=== PATIENT | female | born 1970 | race Caucasian/White ===

== ENCOUNTER 2018-03-07 16:02 | Emergency (ER) | payer SELFPAY ==
[~2018-03-07] VITALS: Wt 47.7 kg
[~2018-03-07 16:02] MED LIST: AMLO5TAB4 PO; CEPH-443 PO; HYDR25TA6 PO; IBUP-1542 PO; ONDA4TAB8 PO
[2018-03-07 16:05] VITALS: BP 132/87; PULSE 99; RESP 18
[2018-03-07] MEDS ORDERED: KETOROLAC 30 MG INJ IM STA (16:55)
[2018-03-07] MEDS ORDERED: CYCL10TA7 PO (17:50)
[2018-03-07] MEDS ORDERED: IBUP-1561 PO (17:50)
--- NOTE | 2018-03-07 17:56 | ERD ---
ER Documentation Chief Complaint Chief Complaint BACKPAIN ,GONZALEZ X 3 DAYS HPI 47-year-old female patient with no significant past medical history presents to ED complaining of back pain, headache that started 3 days ago. Denies any injuries. Reports that she has neck pain that radiates to her head. Describes as achy sensation. States that when she leans forward, her back and head also hurt. Denies any fever, chills, nausea, vomiting, diarrhea, neck stiffness. ROS All systems reviewed and are negative except as per history of present illness. Medications Home Meds Active Scripts Cyclobenzaprine Hcl* (Cyclobenzaprine Hcl*) 10 Mg Tablet, 10 MG PO TID, #15 TAB Prov:JACKSON VO PA-C 03/07/18 Ibuprofen* (Motrin*) 400 Mg Tab, 400 MG PO Q6, #30 TAB Prov:JACKSON VO PA-C 03/07/18 Ondansetron Hcl* (Zofran*) 4 Mg Tablet, 4 MG PO Q8H PRN for NAUSEA AND/OR VOMITING, #20 TAB Prov:CRISTELA ANGEL MD 12/14/15 Ibuprofen* (Ibuprofen*) 600 Mg Tablet, 600 MG PO Q8 for PAIN AND/OR INFLAMMATION, #30 TAB Prov:CRISTELA ANGEL MD 12/14/15 Cephalexin* (Keflex*) 500 Mg Capsule, 500 MG PO TID for 7 Days, CAP Prov:CRISTELA ANGEL MD 12/14/15 Reported Medications Hydrochlorothiazide* (Hydrochlorothiazide*) 25 Mg Tab, 25 MG PO DAILY, #30 TAB 12/14/15 Amlodipine Besylate* (Norvasc*) 5 Mg Tablet, 5 MG PO DAILY, TAB 12/14/15 Allergies Allergies: Coded Allergies: No Known Allergy (Unverified , 03/07/18) PMhx/Soc History of Surgery: No Anesthesia Reaction: No Hx Neurological Disorder: No Hx Respiratory Disorders: No Hx Cardiac Disorders: Yes (HTN HLD) Hx Psychiatric Problems: No Hx Miscellaneous Medical Probl: No Hx Alcohol Use: No Hx Substance Use: No Hx Tobacco Use: No FmHx Family History: No diabetes, No coronary disease Physical Exam Vitals Vital Signs Date Temp Pulse Resp B/P (MAP) Pulse Ox O2 O2 Flow FiO2 Time Delivery Rate 03/07/18 97.1 99 18 132/87 99 16:05 (102) Physical Exam Const: [id number], well-nourished. In no acute distress. Head: Atraumatic, normocephalic Eyes: Normal Conjunctiva without injection. No purulent discharge. ENT: Normal external ear, nose. Moist oropharynx without tonsillar exudates. Non-erythematous pharynx. Uvula midline. No drooling. No trismus. Neck: No cervical midline tenderness. Full range of motion. No meningismus. No cervical lymphadenopathy. No JVD. Resp: Clear to auscultation bilaterally. No wheezing, rhonchi, rales, or crackles. No accessory muscle use. No retractions. Cardio: Regular rate and rhythm. No murmurs, rubs or gallops. Abd: Soft, nontender, non distended. Normal bowel sounds. No palpable masses. No rebound tenderness. No guarding. Negative McBurney's point. Negative psoas sign. Negative obturator sign. Skin: No petechiae or rashes Back: No midline tenderness. No CVA tenderness. Ext: No cyanosis, or edema. Neur: Awake and alert. Normal gait. Normal coordination. Psych: Normal Mood and Affect Results 24 hrs Laboratory Tests Test 03/07/18 17:13 POC Beta HCG, Qualitative NEGATIVE Current Medications Medications Dose Sig/Brett Start Time Status Last (Trade) Ordered Route PRN Stop Time Admin Dose Reason Admin Ketorolac 30 mg ONCE STAT 03/07/18 DC 03/07/18 Tromethamine IM 16:55 17:21 (Toradol) 03/07/18 16:59 Procedures/MDM 47-year-old female patient with no significant past medical history presents to ED complaining of back pain, headache that started 3 days ago. Patient is afebrile and nontoxic-appearing. IMPRESSION: Limited evaluation of the dens. Otherwise no definite fracture. Mild to moderate degenerative changes. Further findings as detailed above. Consider noncontrast CT of the cervical spine as clinically warranted if history of trauma. IMPRESSION: No evidence for acute cardiopulmonary disease. Further findings as detailed above. Patient is ambulating here in the ED without difficulty. Denies saddle anesthesia, numbness or tingling, urine or bowel incontinence, weakness. Low suspicion for cauda equina syndrome, cord compression, nephrolithiasis, aortic a neurysm, aortic dissection, epidural abscess, spinal hematoma, malignancy, pyelonephritis, or other emergent conditions. Diagnosis: Back Pain Discharge medications: Cyclobenzaprine, Ibuprofen Follow up with primary care physician in 1-2 days. Instructed patient to return to the ED sooner for any worsening symptoms. Patient's questions were answered. Patient is hemodynamically stable. Patient understood and agreed with discharge plan. Patient discharged stable. Disclaimer: Inadvertent spelling and grammatical errors are likely due to EHR/dictation software use and do not reflect on the overall quality of patient care. Also, please note that the electronic time recorded on this note does not necessarily reflect the actual time of the patient encounter. Departure Diagnosis: Primary Impression: Back pain Back pain location: back pain in unspecified location Chronicity: unspecified Back pain laterality: unspecified Qualified Codes: M54.9 - Dorsalgia, unspecified Condition: Stable Patient Instructions: Back Pain (Acute Or Chronic), Back And Neck Pain, General Referrals: [facility] ([facility]) [facility] YOU HAVE RECEIVED A MEDICAL SCREENING EXAM AND THE RESULTS INDICATE THAT YOU DO NOT HAVE A CONDITION THAT REQUIRES URGENT TREATMENT IN THE EMERGENCY DEPARTMENT. FURTHER EVALUATION AND TREATMENT OF YOUR CONDITION CAN WAIT UNTIL YOU ARE SEEN IN YOUR DOCTORS OFFICE WITHIN THE NEXT 1-2 DAYS. IT IS YOUR RESPONSIBILITY TO MAKE AN APPOINTMENT FOR FOLOW-UP CARE. IF YOU HAVE A PRIMARY DOCTOR --you should call your primary doctor and schedule an appointment IF YOU DO NOT HAVE A PRIMARY DOCTOR YOU CAN CALL OUR PHYSICIAN REFERRAL HOTLINE AT IF YOU CAN NOT AFFORD TO SEE A PHYSICIAN YOU CAN CHOSE FROM THE FOLLOWING [facility] [address] [facility]. [facility] [address] [facility]. [facility] [address] [facility] [address] [facility]. [facility] [address] [facility]. [facility]. [address] [facility]. [facility] YOU HAVE RECEIVED A MEDICAL SCREENING EXAM AND THE RESULTS INDICATE THAT YOU DO NOT HAVE A CONDITION THAT REQUIRES URGENT TREATMENT IN THE EMERGENCY DEPARTMENT. FURTHER EVALUATION AND TREATMENT OF YOUR CONDITION CAN WAIT UNTIL YOU ARE SEEN IN YOUR DOCTORS OFFICE WITHIN THE NEXT 1-2 DAYS. IT IS YOUR RESPONSIBILITY TO MAKE AN APPOINTMENT FOR FOLOW-UP CARE. IF YOU HAVE A PRIMARY DOCTOR --you should call your primary doctor and schedule and appointment IF YOU DO NOT HAVE A PRIMARY DOCTOR YOU CAN CALL OUR PHYSICIAN REFERRAL HOTLINE AT . IF YOU CAN NOT AFFORD TO SEE A PHYSICIAN YOU CAN CHOSE FROM THE FOLLOWING [facility] INSTITUTIONS: [facility] [address] [place] [address] [facility] [address] [place] [address] [facility] [address] [place] [address] [facility] URGENT CARE/SPECIALTIES Additional Instructions: Llame al doctor MAANA y tamir rock ZAKIYA PARA DENTRO DE 2-3 ELENA.Dgale a la secretaria que nosotros le instruimos hacer esta zakiya.Avise o llame si guzman condicin se empeora antes de la zakiya. Regresa aqui si peor o no mejor. JACKSON VO PA-C Mar 07, 2018 17:56
== END 2018-03-07 17:58 | disposition home or self-care (01) ==
LOC: FTE 16:02
DX: M54.9 Dorsalgia, unspecified (principal); I10 Essential (primary) hypertension
CPT/HCPCS: 71045; 72040; 81025; 96372; 99284; J1885

== ENCOUNTER 2018-07-20 15:03 | Emergency (ER) | payer MEDICAID ==
[~2018-07-20] VITALS: Ht 149.9 cm; Wt 48.4 kg
[~2018-07-20 15:03] MED LIST changes: +CYCL10TA7 PO; +IBUP-1561 PO
[2018-07-20 15:06] VITALS: Ht 149.9 cm; Wt 48.4 kg
[2018-07-20] MEDS ORDERED: MECLIZINE 12.5 MG TAB PO ONE (16:00)
[2018-07-20] MEDS ORDERED: LABETALOL HCL 20MG INJ IV ONE ×2 (16:00→17:00)
[2018-07-20] MEDS ORDERED: IBUP-1541 PO (16:22)
[2018-07-20] MEDS ORDERED: LOSA25TA12 PO (16:22)
[2018-07-20] MEDS ORDERED: ACETAMINOPHEN 325 MG TAB PO ONE (16:30)
[2018-07-20] MEDS ORDERED: MECL12.574 PO (16:30)
[2018-07-20] MEDS ORDERED: ACET325T33 PO (16:30)
--- NOTE | 2018-07-20 16:55 | ERD ---
ER Documentation Chief Complaint Chief Complaint feels dizzy , generalized weakness , neck pressure since sunday HPI Patient is a 48-year-old female with hypertension who presents with high blood pressure. She started with dizziness on Sunday and feels like the room is spinning. She says that she is taking her medications for blood pressure. She also complained of mild headache and neck pain. Upon review of old medical records this is the patient's third visit to the ER since 2016. She does not currently have a primary doctor. ROS All systems reviewed and are negative except as per history of present illness. Medications Home Meds Active Scripts Meclizine Hcl* (Antivert*) 12.5 Mg Tab, 25 MG PO Q6H PRN for DIZZINESS, #20 TAB Prov:BILLY SEALS MD 07/20/18 Acetaminophen* (Tylenol*) 325 Mg Tablet, 2 TAB PO Q8 PRN for PAIN AND OR ELEVATED TEMP, #20 TAB Prov:BILLY SEALS MD 07/20/18 Reported Medications Ibuprofen* (Ibuprofen*) 400 Mg Tablet, 400 MG PO NEEDED PRN for PAIN, TAB 07/20/18 Losartan Potassium* (Losartan Potassium*) 25 Mg Tablet, 25 MG PO DAILY, TAB 07/20/18 Discontinued Reported Medications Hydrochlorothiazide* (Hydrochlorothiazide*) 25 Mg Tab, 25 MG PO DAILY, #30 TAB 12/14/15 Amlodipine Besylate* (Norvasc*) 5 Mg Tablet, 5 MG PO DAILY, TAB 12/14/15 Discontinued Scripts Cyclobenzaprine Hcl* (Cyclobenzaprine Hcl*) 10 Mg Tablet, 10 MG PO TID, #15 TAB Prov:JACKSON VO PA-C 03/07/18 Ibuprofen* (Motrin*) 400 Mg Tab, 400 MG PO Q6, #30 TAB Prov:JACKSON VO PA-C 03/07/18 Ondansetron Hcl* (Zofran*) 4 Mg Tablet, 4 MG PO Q8H PRN for NAUSEA AND/OR VOMITING, #20 TAB Prov:CRISTELA ANGEL MD 12/14/15 Ibuprofen* (Ibuprofen*) 600 Mg Tablet, 600 MG PO Q8 for PAIN AND/OR INFLAMMATION, #30 TAB Prov:CRISTELA ANGEL MD 12/14/15 Cephalexin* (Keflex*) 500 Mg Capsule, 500 MG PO TID for 7 Days, CAP Prov:CRISTELA ANGEL MD 12/14/15 Allergies Allergies: Coded Allergies: No Known Allergy (Unverified , 07/20/18) PMhx/Soc History of Surgery: No Anesthesia Reaction: No Hx Neurological Disorder: No Hx Respiratory Disorders: No Hx Cardiac Disorders: Yes (HTN HLD) Hx Psychiatric Problems: No Hx Miscellaneous Medical Probl: No Hx Alcohol Use: No Hx Substance Use: No Hx Tobacco Use: No Smoking Status: Never smoker FmHx Family History: No diabetes Physical Exam Vitals Vital Signs Date Temp Pulse Resp B/P (MAP) Pulse Ox O2 O2 Flow FiO2 Time Delivery Rate 07/20/18 66 19 174/104 98 Room Air 16:10 (127) 07/20/18 Nasal 3 15:20 Cannula 07/20/18 98.2 88 18 223/107 98 15:06 (145) Physical Exam Const: No acute distress Head: Atraumatic Eyes: Normal Conjunctiva ENT: Normal External Ears, Nose and Mouth. Neck: Full range of motion. No meningismus. Resp: Clear to auscultation bilaterally Cardio: Regular rate and rhythm, no murmurs Abd: Soft, non tender, non distended. Normal bowel sounds Skin: No petechiae or rashes Back: No midline or flank tenderness Ext: No cyanosis, or edema Neur: Awake and alert, cranial nerves II through XII are intact, strength is 5 out of 5 in all 4 extremities, no slurred speech Psych: Normal Mood and Affect Result Diagram: 07/20/18 1531 07/20/18 1531 Results 24 hrs Laboratory Tests Test 07/20/18 15:31 07/20/18 15:52 White Blood Count 8.2 10^3/ul Red Blood Count 4.46 10^6/ul Hemoglobin 12.2 g/dl Hematocrit 36.8 % Mean Corpuscular Volume 82.5 fl Mean Corpuscular Hemoglobin 27.4 pg Mean Corpuscular Hemoglobin Concent 33.2 g/dl Red Cell Distribution Width 16.3 % Platelet Count 382 10^3/UL Mean Platelet Volume 10.0 fl Immature Granulocytes % 0.100 % Neutrophils % 50.0 % Lymphocytes % 35.6 % Monocytes % 10.2 % Eosinophils % 3.2 % Basophils % 0.9 % Nucleated Red Blood Cells % 0.0 /100WBC Immature Granulocytes # 0.010 10^3/ul Neutrophils # 4.1 10^3/ul Lymphocytes # 2.9 10^3/ul Monocytes # 0.8 10^3/ul Eosinophils # 0.3 10^3/ul Basophils # 0.1 10^3/ul Nucleated Red Blood Cells # 0.0 10^3/ul Sodium Level 141 mmol/L Potassium Level 3.6 mmol/L Chloride Level 107 mmol/L Carbon Dioxide Level 26 mmol/L Anion Gap 8 Blood Urea Nitrogen 11 mg/dl Creatinine 0.47 mg/dl Est Glomerular Filtrat Rate mL/min > 60 mL/min Glucose Level 102 mg/dl Calcium Level 9.5 mg/dl Troponin I < 0.012 ng/ml POC Beta HCG, Qualitative NEGATIVE Current Medications Medications Dose Sig/Brett Start Time Status Last (Trade) Ordered Route PRN Stop Time Admin Dose Reason Admin Labetalol 20 mg ONCE ONCE 07/20/18 DC 07/20/18 HCl IV 16:00 15:47 (Labetalol) 07/20/18 16:01 Meclizine 25 mg ONCE ONCE 07/20/18 DC 07/20/18 HCl PO 16:00 15:47 (Antivert) 07/20/18 16:01 650 mg ONCE ONCE 07/20/18 DC 07/20/18 Acetaminophen PO 16:30 16:27 (Tylenol 07/20/18 16:31 Tab) Labetalol 20 mg ONCE ONCE 07/20/18 07/20/18 HCl IV 17:00 16:40 (Labetalol) 07/20/18 17:01 Procedures/MDM EKG read by me: Rate/Rhythm: Regular rate and rhythm at a normal rate Intervals: Normal Impression: No evidence of ischemia or arrhythmia Chest x-ray read by radiology. Patient is a 48-year-old female with hypertension who presents with acute hypertension with dizziness. I doubt stroke. I believe the risk of doing a CT scan of the brain outweigh the benefits in this case. EKG shows no signs of ischemia or arrhythmia. The patient was given labetalol 20 mg IV x2 with improvement of the blood pressure. She was given medication for symptom medic relief. I believe outpatient management is appropriate at this time but I do believe the patient needs close follow-up with a primary doctor within 24 to 48 hours for reevaluation. The patient will be given a list of the local clinics as she does not currently have a primary doctor. Critical Care: Time: 35 minutes excluding all billable procedures. Treatments/Evaluations: Close monitoring and treatment of unstable vital signs, cardiorespiratory, and neurologic status, while maintaining tight balance of fluid, respiratory, and cardiac interventions. Departure Diagnosis: Primary Impression: HTN (hypertension) Hypertension type: essential hypertension Qualified Codes: I10 - Essential (primary) hypertension Additional Impressions: Dizziness Headache Headache type: unspecified Headache chronicity pattern: acute headache Intractability: not intractable Qualified Codes: R51 - Headache Condition: Fair Patient Instructions: Self-Care for Headaches, High Blood Pressure (Hypert ension), Dizziness, Unk Cause [facility]errals: [facility] Usted se nuñez hecho un examen mdico de control que le indica que no est en rock condicin que requiera tratamiento urgente en el Departamento de Emergencia. Un estudio ms profundo y el tratamiento de guzman condicin pueden esperar sin ningn riesgo hasta que usted sea atendida/o en el consultorio de guzman mdico o rock clnica. Es responsabilidad suya arreglar rock zakiya para el seguimiento del aris. MANEJO DE CONDICIONES NO URGENTES EN EL FUTURO 1) Si usted tiene un mdico de atencin primaria: Usted debera llamar a guzman mdico de atencin primaria antes de venir al departamento de emergencia. Despus de las horas de consultorio, guzman doctor o guzman asociado/a est disponible por telfono. El mdico o enfermero de ruthy en el servicio telefnico puede asesorarle por adrianne medio para atender el problema, o aris contrario se puede programar rock zakiya. 2) Si usted no tiene un mdico de atencin primaria: Llame al mdico o clnica de referencia que aparece abajo suraj las horas de consultorio para hacer rcok zakiya para que le vean. CLINICAS: [facility] [phone] [facility] [phone] [facility] [phone] [place] [address] [phone] [facility] [phone] [address] [facility]. [phone] [address] Additional Instructions: Llame al doctor MAANA y tamir rock ZAKIYA PARA DENTRO DE 1-2 ELENA.Dgale a la secretaria que nosotros le instruimos hacer esta zakiya.Avise o llame si guzman co ndicin se empeora antes de la zakiya. Regresa aqui si peor o no mejor. BILLY SEALS MD Jul 20, 2018 16:54
[2018-07-20] MEDS ORDERED: NICARDipine HCL 30 MG CAPSULE PO ONE (17:30)
[2018-07-20] MEDS ORDERED: LORAZEPAM 1 MG TAB PO ONE (18:00)
[2018-07-20 18:13] VITALS: BP 116/87; PULSE 75; RESP 18
== END 2018-07-20 18:14 | disposition home or self-care (01) ==
LOC: E/R 15:03
DX: I10 Essential (primary) hypertension (principal)
CPT/HCPCS: 71045; 80048; 81025; 84484; 85025; 93005; Z7610; 36415; 96374; 96375

== ENCOUNTER 2018-08-02 19:56 | Emergency (ER) | payer MEDICAID ==
[~2018-08-02] VITALS: Ht 152.4 cm; Wt 48.8 kg
[~2018-08-02 19:56] MED LIST changes: +ACET325T33 PO; -AMLO5TAB4 PO; -CEPH-443 PO; -CYCL10TA7 PO; -HYDR25TA6 PO; +IBUP-1541 PO; -IBUP-1542 PO; -IBUP-1561 PO; +LOSA25TA12 PO; +MECL12.574 PO; -ONDA4TAB8 PO
[2018-08-02 19:59] VITALS: Ht 152.4 cm; Wt 48.8 kg
--- NOTE | 2018-08-02 21:28 | ERD ---
ER Documentation Chief Complaint Chief Complaint neck pain x 1 week HPI 48-year-old woman here for hypertension, she states she was here 2 weeks ago and since then her blood pressure has been running high, she followed up with her primary care physician today who increased the losartan dose from 50 to 100 mg daily, she states she used a new higher dose but her blood pressure remains high. She said chronic left lateral neck pain on a daily basis, the pain is nonradiating and nonexertional. Patient denies blurry vision, no paresis or paresthesias, no headache, no slurred speech, no nausea or vomiting, no complaints of chest pain or shortness of breath ROS All systems reviewed and are negative except as per history of present illness. Medications Home Meds Active Scripts Meclizine Hcl* (Antivert*) 12.5 Mg Tab, 25 MG PO Q6H PRN for DIZZINESS, #20 TAB Prov:BILLY SEALS MD 07/20/18 Acetaminophen* (Tylenol*) 325 Mg Tablet, 2 TAB PO Q8 PRN for PAIN AND OR ELEVATED TEMP, #20 TAB Prov:BILLY SEALS MD 07/20/18 Reported Medications Ibuprofen* (Ibuprofen*) 400 Mg Tablet, 400 MG PO NEEDED PRN for PAIN, TAB 07/20/18 Losartan Potassium* (Losartan Potassium*) 25 Mg Tablet, 25 MG PO DAILY, TAB 07/20/18 Allergies Allergies: Coded Allergies: No Known Allergy (Unverified , 07/20/18) PMhx/Soc Hypertension History of Surgery: No Anesthesia Reaction: No Hx Neurological Disorder: No Hx Respiratory Disorders: No Hx Cardiac Disorders: Yes (HTN HLD) Hx Psychiatric Problems: No Hx Miscellaneous Medical Probl: No Hx Alcohol Use: No Hx Substance Use: No Hx Tobacco Use: No FmHx Family History: No diabetes Physical Exam Vitals Vital Signs Date Temp Pulse Resp B/P (MAP) Pulse Ox O2 O2 Flow FiO2 Time Delivery Rate 08/02/18 97.8 94 16 198/115 100 19:59 (142) Physical Exam GENERAL: Well-developed, well-nourished, well-hydrated, in no apparent distress, looks nontoxic in appearance HEENT: Moist mucous membranes, pink conjunctiva, no cervical spine tenderness or step-off deformities, no goiter, no jaundice or icterus, extraocular movements intact without pain. No submandibular induration, and no pharyngeal erythema NEURO: Alert and oriented 3, cranial nerves II through XII intact bilaterally, pupils equal round reactive to light, no focal deficits or facial asymmetry, sensation intact distally Strength 5/5 in upper and lower extremities bilaterally CARDIAC: Regular rate and rhythm, no murmurs rubs or gallops LUNGS: Clear bilaterally no wheezing crackles or stridor ABDOMEN: Soft nontender, no guarding, no rigidity, no rebound, no psoas sign no obturator sign. Normoactive bowel sounds SKIN: Warm and dry to touch, no abrasions, contusions, or hematomas, no lacerations, no ecchymosis, no target lesions, and without ulcers EXTREMITIES: No clubbing cyanosis or edema, calves are bilaterally symmetrical, no Homans sign, no popliteal cord sign. Distal pulses equal and bilateral PSYCH: Normal affect without agitation or irritability Procedures/MDM IV line was established patient was placed on registered nurse cardiac rhythm strip revealed a sinus rhythm at about 80 bpm with upright P and T waves. Patient was afebrile EKG performed, read by me revealed a normal sinus rhythm 84 bpm, normal axis, narrow QRS complex, no concerning ST elevations or depressions noted Administer 1 L normal saline IV, hydralazine 20 mg IV, Toradol 15 mg IV CBC and electrolytes were normal, troponin was negative Patient's blood pressure improved, neck pain resolved, and she appears well. I recommended follow-up with PMD and continued antihypertensive medication compliance Differential diagnoses considered, included but not limited to acute coronary syndrome, pulmonary embolism, aortic dissection, abdominal aortic aneurysm, sepsis, stroke, meningitis, encephalitis, pneumonia, appendicitis, cholecystitis, bowel obstruction, pyelonephritis, nephrolithiasis, cystitis, as well as metabolic, hematologic, and electrolyte abnormalities. As well as abscess, cellulitis, fractures, and dislocations. Patient feels much better at this time, and vital signs are normal, symptoms have improved. I did give strict instructions to return to the ED if symptoms continue or worsen, patient will otherwise follow-up with primary care physician. Patient understood instructions and agreed to plan. Disclaimer: Inadvertent spelling and grammatical errors are likely due to EHR/dictation software use and do not reflect on the overall quality of patient care. Also, please note that the electronic time recorded on this note does not necessarily reflect the actual time of the patient encounter. Departure Diagnosis: Primary Impression: Hypertension Hypertension type: essential hypertension Qualified Codes: I10 - Essential (primary) hypertension Condition: Good CRISTELA ANGEL MD Aug 02, 2018 21:28
[2018-08-02] MEDS ORDERED: KETOROLAC 15 MG INJ IV STA (21:34)
[2018-08-02] MEDS ORDERED: SOD CHLORIDE 0.9% 1,000 ML IV STA (21:34)
[2018-08-02] MEDS ORDERED: hydrALAzine 20 MG INJ IV ONE (22:00)
[2018-08-02] MEDS ORDERED: LORAZEPAM 0.5 MG TAB PO ONE (23:00)
[2018-08-02] MEDS ORDERED: METOPROLOL 25 MG TAB PO ONE (23:00)
[2018-08-02 23:21] VITALS: BP 124/77; PULSE 112; RESP 16
== END 2018-08-02 23:22 | disposition home or self-care (01) ==
LOC: E/R 19:56
DX: I10 Essential (primary) hypertension (principal); R40.2142 Coma scale, eyes open, spontaneous, at arrival to emergency department; R40.2362 Coma scale, best motor response, obeys commands, at arrival to emergency department; R40.2252 Coma scale, best verbal response, oriented, at arrival to emergency department
CPT/HCPCS: 36415; 80048; 84484; 85025; 93005; 96374; 96375; J0360; J1885; J7030; Z7502; Z7610

== ENCOUNTER 2018-10-19 15:28 | Emergency (ER) | payer MEDICAID, OTHER ==
[~2018-10-19] VITALS: Ht 157.5 cm; Wt 48.5 kg
[~2018-10-19 15:28] MED LIST changes: +AMLO-147 PO; +IBUP-1982 PO; +LOSA50TA14 PO
[2018-10-19 15:47] VITALS: Ht 157.5 cm; Wt 48.5 kg
[2018-10-19] MEDS ORDERED: morphine 4 MG/ML VIAL IV STA (17:23)
[2018-10-19] MEDS ORDERED: SOD CHLORIDE 0.9% 100 ML ONE (18:14)
[2018-10-19] MEDS ORDERED: IOHEXOL 300MG/ML 150 ML BTL ONE (18:14)
[2018-10-19 22:52] VITALS: BP 130/81; PULSE 75; RESP 18
== END 2018-10-19 22:53 | disposition home or self-care (01) ==
LOC: E/R 15:28
DX: R10.32 Left lower quadrant pain (principal); I10 Essential (primary) hypertension
CPT/HCPCS: 74177; 76830; 76856; 80053; 81001; 83690; 84703; 85025; 96374; J2270; Q9967; Z7502; Z7610